=== PATIENT | male | born 1980 | race Caucasian/White ===

== ENCOUNTER 2024-03-05 16:32 | Emergency (ER) | payer OTHER, SELFPAY ==
[2024-03-05 16:38] VITALS: BP 131/85
--- NOTE | 2024-03-05 16:54 | ED.GENMED ---
History of Present Illness
General
Chief Complaint: Chest Pain
Source: patient
Exam Limitations: none
Time Seen by Provider: 03/05/24 16:53
Travel History
Have you had any contact with someone who has COVID-19?: No
Do you have any symptoms of coronavirus? Fever > 100 degrees, chills, cough, shortness of breath, sore throat, loss of taste or smell, muscle aches, or headache?: No
History of Present Illness
History of Present Illness:
43-year-old male complaining of chest pain. Woke him from his sleep at 8 AM. Continuous since 8 AM. Does at times get worse but generally continuous. Not exertional. No radiation to the arm or back. No true shortness of breath nausea or
diaphoresis. Patient has a fairly physical job and has no issues with this.
Past History
Past History
ED Past Medical History: Hypercholesterolemia and Psychiatric
ED Past Surgical History: Other
Social History
Tobacco: Non-smoker
Alcohol: None
Drug: None
Personal:
Living: with family
Employment: Employed
Review of Systems
Review of Systems
All Other Systems: Not applicable
Constitutional: Denies fever
Cardiac: Denies syncope
ABD/GI: Reports no symptoms
Phy Exam
Physical Exam
Physical Exam:
GENERAL: Alert and oriented in no apparent distress
EYE: Orbits normal.
NECK: Supple, no thyroid palpable
CARDIAC: Regular rate and rhythm without any obvious murmurs.
LUNGS: Clear breath sounds,normal
ABDOMEN: Soft, without focal tenderness or distention
NEUROLOGICAL: Alert and oriented , grossly non-focal
SKIN: Warm and dry, no rash or lesion, no discoloration, skin intact.
MUSCULOSKELETAL: No edema,no deformity.Good color
PSYCH: Normal and appropriate interaction.
Scores
Heart Score for Chest Pain Patients
STEMI patient?: No
History: Slightly or Non-Suspicious
ECG: Normal
Age: </= 45 years
Risk Factors: 1 or 2 Risk Factors
Troponin: </= Normal Limit
Heart Score for Chest Pain Patients: 1
Heart Score Risk: 2.5% MACE over next 6 weeks
Course
Orders/Labs/Results
Orders:
Orders
03/05/24 16:34
ECG [Electrocardiogram (*1)] Urgent
Reason for Study: Chest Pain
EKG- Treatment ONCE
03/05/24 17:02
IV Insert/Care/Rem.- Treatment PRN
03/05/24 17:09
Basic Metabolic Panel Urgent
Complete Blood Count/With Diff Urgent
D-Dimer Urgent
Troponin I Urgent
03/05/24 17:45
CXR2 [CR Chest - 2 Views ] Urgent
Comment:
Reason For Exam: cp
03/05/24 18:31
EKG [Electrocardiogram (*1)] Urgent
Reason for Study: Chest Pain
03/05/24 18:32
EKG- Treatment ONCE
03/05/24 18:45
Ketorolac [Toradol] 15 mg IV NOW STA
03/05/24 19:01
Troponin I Urgent
Abnormal Lab Results
03/05/24
17:09
Carbon Dioxide 21 L mmol/L
(22-30)
Glucose 133 H mg/dl
(70-99)
03/05/24 17:09
03/05/24 17:09
Vital Signs
Initial and Last Documented VS:
Initial Vital Signs
Temp Pulse Resp BP Pulse Ox
98.3 F 80 20 131/85 96
03/05/24 16:38 03/05/24 16:38 03/05/24 16:38 03/05/24 16:38 03/05/24 16:38
Last Documented Vital Signs
Temp Pulse Resp BP Pulse Ox
98.3 F 70 19 127/74 96
03/05/24 16:38 03/05/24 18:08 03/05/24 18:08 03/05/24 18:08 03/05/24 18:08
MDM/Problems Addressed
Differential Diagnosis Includes:
Patient with ongoing nonexertional chest pain for 9 hours continuously. EKG is normal. Mild cardiac risk factors. Doubt cardiac. Will check troponin. Also will check D-dimer.
*Pulse Oximetry
Patient hypoxic: no
*EKG
Interpreted by ED Provider?: Yes
Interpretation: normal
Comparison EKG: no changes
Heart Rate: 69
Rate: normal
Rhythm: sinus
[place]: normal axis
Interval: normal interval
QRS Pattern: normal QRS
Ischemia: no ischemia
*Critical Care Note
Total Time (30-74mins, 75-104mins- exclusive of procedures): Not Applicable
Update Note
Update Note:
1844... Patient noted some increasing pain. Again stressed the pain has been continuous since 8 AM but has episodes where it is worse. When he told the nurse the pain was worsening repeat his EKG which is a normal EKG normal sinus rhythm [place]
intervals within normal limits. Rate 73. Patient appears very comfortable and nontoxic. D-dimer normal. Very very low suspicion for pulmonary emboli or dissection. Will give Toradol and repeat troponin for completeness. However I would have
expected the troponin to be positive at this time if this was a cardiac issue
2029... Patient patient has remained very stable and nontoxic in appearance. He had ongoing continuous pain for about 12 hours with 2 negative troponins and 2 normal EKGs. No other serious etiology found. Stable for discharge to follow-up
ED Attending Note
-
Portions of this chart may have been created with voice recognition software.� Occasional wrong word or��sound alike� substitutions may have occurred due to the inherent limitations of voice recognition software.
Discharge Plan
Departure
Patient Disposition: Home (Routine Discharge)
Date of Disposition: 03/05/24
Time of Disposition: 20:31
Patient with high blood pressure during this ER visit?: No
Discharge Problem:
Chest pain
Instructions: Chest Pain DCA Follow Up
Prescriptions:
No Action
penicillin V potassium 500 mg tablet
500 mg PO BID Qty: 14 0RF
ibuprofen 600 mg tablet
600 mg PO Q6H PRN (Reason: pain) Qty: 20 0RF
Referrals:
Jose Talbot DO [Family Provider] - Follow up in 2-3 days
Interventions
Interventions:
*Risk Screen - Suicide Last Done: 03/05/24 16:38
*General Assessment Last Done: 03/05/24 16:38
*Neglect/Abuse Screening Last Done: 03/05/24 16:38
ED- Fall Risk Assessment Last Done: 03/05/24 18:04
*ED COVID-19 Vaccine History Last Done: 03/05/24 17:06
ED- Cardiac Assessment Last Done: 03/05/24 19:05
Discharge Date and Time
Print Language: KENYAN
[2024-03-05 16:56] VITALS: BMI 28.7
[2024-03-05 17:18] LABS: % Basophils 0.9 % (0-2); % Eosinophils 1.8 % (0-6); % Immature Granulocytes 0.3 % (0-0.5); % Lymphocytes 37.4 % (20.5-51.1); % Monocytes 5.8 % (1.7-9.3); % Neutrophils 53.8 % (42.2-75.2); Absolute Basophils 0.1 10^3/uL (0-0.2); Absolute Eosinophils 0.1 10^3/uL (0-0.7); Absolute Lymphocytes 2.5 10^3/uL (1.2-3.4); Absolute Monocytes 0.4 10^3/uL (0.1-0.6); Absolute Neutrophils 3.6 10^3/uL (1.4-6.5); Hematocrit 41.5 % (39.0-52.0); Hemoglobin 15.2 g/dL (13.0-18.0); Mean Corp Hgb Conc. 36.6 g/dL (33.0-37.0); Mean Corpuscular Hgb 29.4 pg (27.0-31.0); Mean Corpuscular Volume 80.3 fL (80.0-94.0); Mean Platelet Volume 10.3 fL (7.4-10.4); Nucleated Red Blood Cells % 0 % (-); Platelet Count 249 10^3/uL (130-400); Red Blood Cell Count 5.17 10^6/uL (4.70-6.10); Red Cell Dist. Width 12.2 % (11.5-14.5); White Blood Cell Count 6.7 10^3/uL (4.8-10.8)
[2024-03-05 17:32] LABS: D-Dimer 0.37 ug/mlFEU (0.00-0.50)
[2024-03-05 17:33] LABS: Blood Urea Nitrogen 11 mg/dl (9-20); Calcium 9.4 mg/dl (8.4-10.2); Carbon Dioxide 21 mmol/L (22-30); Chloride 107 mmol/L (98-107); Estimated Creatinine Clearance 117 ml/min; Glucose 133 mg/dl (70-99); Potassium 3.8 mmol/L (3.5-5.1); Sodium 140 mmol/L (135-145); eGFR > 60.00
[2024-03-05 17:45] LABS: Troponin I < 0.012 ng/ml
[2024-03-05 18:08] VITALS: BP 127/74
[2024-03-05 19:00] VITALS: BP 125/77
[2024-03-05] MEDS: TORADOL 15 MG IV (19:05)
[2024-03-05 19:45] LABS: Troponin I < 0.012 ng/ml
[2024-03-05 20:00] VITALS: BP 114/61
== END 2024-03-05 21:00 | disposition home or self-care (01) ==
LOC: EMR 16:32
PROVIDERS: EMERGENCY PHYSICIAN Emergency Medicine; FAMILY PHYSICIAN Family Medicine
DX: R07.89 Other chest pain (principal); E78.00 Pure hypercholesterolemia, unspecified
CPT/HCPCS: 99283; 96372; 71046; 80048; 84484; 85025; 85379; 93005